=== PATIENT | male | born 1985 | race Caucasian/White ===

== ENCOUNTER 2019-09-05 08:44 | Emergency (ER) | payer SELFPAY ==
[~2019-09-05] VITALS: Ht 182.9 cm; Wt 145.1 kg
[2019-09-05 08:55] VITALS: Ht 182.9 cm; Wt 145.1 kg
[2019-09-05 12:01] VITALS: BP 140/82
== END 2019-09-05 12:01 | disposition home or self-care (01) ==
LOC: ED 08:44
DX: B34.9 Viral infection, unspecified (principal); Z20.828 Contact with and (suspected) exposure to other viral communicable diseases
CPT/HCPCS: 87804